=== PATIENT | female | born 1955 | race African-American/Black ===

== ENCOUNTER 2022-09-01 18:58 | Emergency (ER) | payer SELFPAY ==
[~2022-09-01] VITALS: Ht 167.6 cm; Wt 73.0 kg
[2022-09-01 20:39] VITALS: BP 112/78
== END 2022-09-01 20:30 | disposition home or self-care (01) ==
LOC: ER 18:58
DX: E86.0 Dehydration (principal); R00.0 Tachycardia, unspecified
CPT/HCPCS: 99283